=== PATIENT | male | born 1975 | race Caucasian/White ===

== ENCOUNTER 2016-09-26 19:03 | Emergency (ER) | payer MEDICAID ==
[2016-09-26] MEDS ORDERED: TETRACAINE HCL 0.5% OPH SOLN 2 ML OS ONE (19:25)
--- NOTE | 2016-09-26 19:25 | ER Document Report ---
ED Medical Screen (RME) - General Stated Complaint: FOREIGN OBJECT IN LEFT EYE Notes: 41 yo male c/o left eye injury. possible foreign body in left eye, ? piece of metal. + contact wearer. no vision change + left conjunctival injection TRAVEL OUTSIDE OF THE [place] IN LAST 30 DAYS: No - Related Data Allergies/Adverse Reactions: No Known Allergies Allergy (Verified 04/04/16 12:45) Past Medical History - Past Medical History Cardiac Medical History: Reports: Hx Hypertension - no meds/poss related to nervousness, Hx Heart Murmur - no sbe Denies: Hx Coronary Artery Disease, Hx Heart Attack Pulmonary Medical History: Denies: Hx Asthma, Hx Bronchitis, Hx COPD, Hx Pneumonia Neurological Medical History: Denies: Hx Cerebrovascular Accident, Hx Seizures GI Medical History: Musculoskeltal Medical History: Reports Hx Arthritis - neuritis LEFT arm/NO IV in LEFT arm , Reports Hx Muscle Weakness - L. arm Psychiatric Medical History: Denies: Hx Depression Infectious Medical History: Past Surgical History: Denies: Hx Pacemaker - Immunizations Hx Diphtheria, Pertussis, Tetanus Vaccination: Yes - 2004
[2016-09-26] MEDS ORDERED: ACETAMINOPHEN WITH CODEINE #3 TABLET PO ONE (22:49)
[2016-09-26] MEDS ORDERED: POLYMYXIN B SULFATE/TMP OPH SOLN 10 ML OS ONE (22:49)
--- NOTE | 2016-09-26 23:01 | ER Document Report ---
ED Eye Complaint - General Chief Complaint: Foreign Body in Eye Stated Complaint: FOREIGN OBJECT IN LEFT EYE Time seen by provider: 22:40 Notes: Patient is a 41-year-old male that comes emergency department for chief complaint of possible foreign body in the left eye, patient states that he was using a small tool to drill dinesh out of the floor this morning when he felt something tiny go into his eye, he states he has had discomfort and watering of his eyes since that time this morning. He was wearing contacts when it happened , he removed these. He is currently wearing glasses. He denies blurred vision, visual loss, discolored discharge. Patient states he was examining his eye and under his eyelids and he saw what looked like a tiny piece of metal underneath his upper eyelid. He states he could not get this out by flushing. TRAVEL OUTSIDE OF THE [place] IN LAST 30 DAYS: No - Related Data Allergies/Adverse Reactions: No Known Allergies Allergy (Verified 09/26/16 19:27) Past Medical History - General Information source: Patient - Social History Smoking Status: Former Smoker Chew tobacco use (# tins/day): No Frequency of alcohol use: Occasional Drug Abuse: None Lives with: Family Family History: Reviewed & Not Pertinent Patient has suicidal ideation: No Patient has homicidal ideation: No - Past Medical History Cardiac Medical History: Reports: Hx Hypertension - no meds/poss related to nervousness, Hx Heart Murmur - no sbe Denies: Hx Coronary Artery Disease, Hx Heart Attack Pulmonary Medical History: Denies: Hx Asthma, Hx Bronchitis, Hx COPD, Hx Pneumonia Neurological Medical History: Denies: Hx Cerebrovascular Accident, Hx Seizures Renal/ Medical History: Denies: Hx Peritoneal Dialysis GI Medical History: Musculoskeltal Medical History: Reports Hx Arthritis - neuritis LEFT arm/NO IV in LEFT arm , Reports Hx Muscle Weakness - L. arm Psychiatric Medical History: Denies: Hx Depression Infectious Medical History: Surgical Hx: Negative Past Surgical History: Denies: Hx Pacemaker - Immunizations Hx Diphtheria, Pertussis, Tetanus Vaccination: Yes - 2004 Review of Systems - Review of Systems Constitutional: No symptoms reported EENT: See HPI Cardiovascular: No symptoms reported Respiratory: No symptoms reported Gastrointestinal: No symptoms reported Genitourinary: No symptoms reported Male Genitourinary: No symptoms reported Musculoskeletal: No symptoms reported Skin: No symptoms reported Hematologic/Lymphatic: No symptoms reported Neurological/Psychological: No symptoms reported Physical Exam - Vital signs Vitals: Temp Pulse Resp BP Pulse Ox 98.3 F 106 H 16 155/112 H 98 09/26/16 19:23 09/26/16 19:23 09/26/16 19:23 09/26/16 19:23 09/26/16 19:23 Interpretation: Normal - General General appearance: Appears well, Alert - HEENT Head: Normocephalic, Atraumatic Eyes: Normal Conjunctiva: Other - There is some irritation and mildly injected conjunctiva on the left side, with semination of the eyelids there was noted to be a small dark hard substance underneath the upper left eyelid. No embedded foreign bodies, no obvious signs of injury. Cornea: Normal. No: Corneal abrasion, Corneal ulcer, Dendrite, Embedded foreign body, Flourescein stain uptake, Superficial foreign body Extraocular movements intact: Yes Eyelashes: Normal Pupils: PERRL Anterior chamber: Normal. No: Hyphema Nerve palsy: No Visual mccormick normal: Yes Ears: Normal External canal: Normal Tympanic membrane: Normal Mucous membranes: Normal Pharynx: Normal - Respiratory Respiratory status: No respiratory distress Chest status: Nontender Breath sounds: Normal Chest palpation: Normal - Cardiovascular Rhythm: Regular. No: Tachycardia Heart sounds: Normal auscultation, S1 appreciated, S2 appreciated Murmur: No - Abdominal Inspection: Normal Distension: No distension Bowel sounds: Normal Tenderness: Nontender Organomegaly: No organomegaly - Back Back: Normal, Nontender - Extremities General upper extremity: Normal inspection, Nontender, Normal color, Normal ROM , Normal temperature General lower extremity: Normal inspection, Nontender, Normal color, Normal ROM , Normal temperature, Normal weight bearing. No: Dallin's sign - Neurological Neuro grossly intact: Yes Cognition: Normal Orientation: AAOx4 [place] Coma Scale Eye Opening: Spontaneous Ari Coma Scale Verbal: Oriented [place] Coma Scale Motor: Obeys Commands Ari Coma Scale Total: 15 Speech: Normal Motor strength normal: LUE, RUE, LLE, RLE Sensory: Normal - Psychological Associated symptoms: Normal affect, Normal mood - Skin Skin Temperature: Warm Skin Moisture: Dry Skin Color: Normal Course - Re-evaluation Re-evalutation: Small foreign body underneath the left upper eyelid, removed easily with a Q- tip. Close examination with fluoresceined dye reveals no embedded foreign bodies, negative Leonor sign, no corneal abrasions, there is a tiny abrasion over the sclera noted, patient was given antibiotic eyedrops, referred to ophthalmology, discussed return precautions in detail. Patient states satisfaction and agreement. - Vital Signs Vital signs: Temp Pulse Resp BP Pulse Ox 98.3 F 106 H 16 155/112 H 98 09/26/16 19:23 09/26/16 19:23 09/26/16 19:23 09/26/16 19:23 09/26/16 19:23 Procedures - Eye Procedure left eye Foreign body removal: Left Alcaine Drops Administered: Yes - 2 drops of tetracaine Acular drops administered: Left Fluorescein applied: Left Antibiotic Oinment/Drps Admin: Left eye Slit lamp used: Yes Notes: After tetracaine, Q-tip used 2 remove foreign body underneath the left eyelid, eyelid sustained the floor seen, examined with wooden slit-lamp, small abrasion to the sclera noted but no corneal abnormalities or embedded foreign bodies noted. Eyes picture: 1 - Location of small foreign body underneath the upper eyelid of the left eye Discharge - Discharge Clinical Impression: Foreign body, eye Qualifiers: Encounter type: initial encounter Laterality: left Qualified Code(s): T15.92XA - Foreign body on external eye, part unspecified, left eye, initial encounter Condition: Stable Disposition: HOME, SELF-CARE Additional Instructions: No foreign bodies remaining in the eye on reexamination. The small foreign body under the eyelid has been removed. Questionable small scratch over the white part of the eye, use the antibiotic drops as directed, follow-up with ophthalmology referral for recheck. Return to the emergency department for any concerning worsening symptoms including eye pain or swelling, visual loss, etc. Prescriptions: Polymyxin B Sulfate/Tmp [Polytrim Oph Soln 10 ml] 1 dose OP ASDIR PRN #1 bottle PRN Reason: Forms: Elevated Blood Pressure Referrals: ANU TAYLOR MD [ACTIVE STAFF] - 09/28/16
[2016-09-26] MEDS ORDERED: POLYMYXIN B SULFATE/TMP OPH SOLN 10 ML ONE (23:29)
[2016-09-26 23:53] VITALS: BP 146/94
== END 2016-09-26 23:42 | disposition home or self-care (01) ==
LOC: ER 19:03
DX: T15.92XA Foreign body on external eye, part unspecified, left eye, initial encounter (principal); X58.XXXA Exposure to other specified factors, initial encounter; Y93.89 Activity, other specified; Z87.891 Personal history of nicotine dependence; I10 Essential (primary) hypertension
CPT/HCPCS: 99283; J3490

== ENCOUNTER 2017-07-10 12:43 | Emergency (ER) | payer SELFPAY ==
--- NOTE | 2017-07-10 13:11 | EKG REPORT ---
SEVERITY:- BORDERLINE ECG - SINUS TACHYCARDIA BORDERLINE PROLONGED QT INTERVAL : Confirmed by: Vikas Luna MD 10-Jul-2017 13:10:42
--- NOTE | 2017-07-10 13:22 | ER Document Report ---
ED Medical Screen (RME) - General Chief Complaint: Irregular Pulse Stated Complaint: IRREGULAR HEART BEAT Time Seen by Provider: 07/10/17 13:21 Notes: Patient states that he has been diagnosed with PVCs. He states he is having a lot of PVCs today and I prevent him from working. He states that he is also under a lot of stress and has bad anxiety. He states he would like to be put on a monitor, he wants an ultrasound done to look at his heart [place], and he would like blood work done. TRAVEL OUTSIDE OF THE [place] IN LAST 30 DAYS: No - Related Data Allergies/Adverse Reactions: No Known Allergies Allergy (Verified 07/10/17 12:44) Home Medications: Current Home Medications Lisinopril [Prinivil 5 mg Tablet] 5 mg PO DAILY 07/10/17 [History] Past Medical History - Social History Chew tobacco use (# tins/day): No Frequency of alcohol use: Occasional Drug Abuse: Marijuana - Past Medical History Cardiac Medical History: Reports: Hx Hypertension - no meds/poss related to nervousness, Hx Heart Murmur - no sbe Denies: Hx Coronary Artery Disease, Hx Heart Attack Pulmonary Medical History: Denies: Hx Asthma, Hx Bronchitis, Hx COPD, Hx Pneumonia Neurological Medical History: Denies: Hx Cerebrovascular Accident, Hx Seizures Renal/ Medical History: Denies: Hx Peritoneal Dialysis GI Medical History: Musculoskeltal Medical History: Reports Hx Arthritis - neuritis LEFT arm/NO IV in LEFT arm , Reports Hx Muscle Weakness - L. arm Psychiatric Medical History: Denies: Hx Depression Infectious Medical History: Past Surgical History: Denies: Hx Pacemaker - Immunizations Hx Diphtheria, Pertussis, Tetanus Vaccination: Yes - 2004 Physical Exam - Vital signs Vitals: Temp Pulse Resp BP Pulse Ox 98.2 F 106 H 20 158/102 H 100 07/10/17 13:03 07/10/17 13:03 07/10/17 13:03 07/10/17 13:03 07/10/17 13:03 Course - Vital Signs Vital signs: Temp Pulse Resp BP Pulse Ox 98.2 F 106 H 20 158/102 H 100 07/10/17 13:03 07/10/17 13:03 07/10/17 13:03 07/10/17 13:03 07/10/17 13:03
[2017-07-10 13:53] LABS: ABSOLUTE EOSINOPHILS # (AUTO) 0.1 10^3/uL (0.0-0.6); ABSOLUTE LYMPHOCYTES (AUTO) 1.7 10^3/uL (0.5-4.7); ABSOLUTE MONOCYTES (AUTO) 0.4 10^3/uL (0.1-1.4); ABSOLUTE NEUT (AUTO) 3.4 10^3/uL (1.7-8.2); BASOPHILS % (AUTO) 0.2 % (0-2); EOSINOPHILS % (AUTO) 2.5 % (0-6); HEMATOCRIT 43.4 % (37.9-51.0); HEMOGLOBIN 15.4 g/dL (13.5-17.0); HGB HCT DIFFERENCE 2.8; LYMPHOCYTES % (AUTO) 30.5 % (13-45); MEAN CORPUSCULAR HEMOGLOBIN 30.2 pg (27.0-33.4); MEAN CORPUSCULAR HGB CONC 35.4 g/dL (32.0-36.0); MEAN CORPUSCULAR VOLUME 85 fl (80-97); RED BLOOD COUNT 5.09 10^6/uL (4.35-5.55); RED CELL DISTRIBUTION WIDTH 13.1 % (11.5-14.0); SEGMENTED NEUTROPHILS % (AUTO) 59.8 % (42-78); WHITE BLOOD COUNT 5.7 10^3/uL (4.0-10.5)
[2017-07-10 14:03] LABS: ALANINE AMINOTRANSFERASE 60 U/L (21-72); ALBUMIN 4.8 g/dL (3.5-5.0); ALKALINE PHOSPHATASE 65 U/L (38-126); ANION GAP 10 (5-19); ASPARTATE AMINO TRANSFERASE 35 U/L (17-59); BILIRUBIN,DIRECT 0.2 mg/dL (0.0-0.4); BILIRUBIN,TOTAL 1.2 mg/dL (0.2-1.3); BLOOD UREA NITROGEN 18 mg/dL (7-20); CALCIUM 9.9 mg/dL (8.4-10.2); CARBON DIOXIDE 33 mmol/L (22-30); CHLORIDE 98 mmol/L (98-107); CREATININE RESULT 0.95 mg/dL (0.52-1.25); GLUCOSE 103 mg/dL (75-110); MAGNESIUM 1.7 mg/dL (1.6-2.3); POTASSIUM 4.1 mmol/L (3.6-5.0); TOTAL PROTEIN 7.8 g/dL (6.3-8.2)
--- NOTE | 2017-07-10 15:08 | ER Document Report ---
ED General - General Chief Complaint: Irregular Pulse Stated Complaint: IRREGULAR HEART BEAT Time Seen by Provider: 07/10/17 13:21 Mode of Arrival: Ambulatory Information source: Patient Notes: 42-year-old male history of anxiety stress and PVCs presents with complaints of PVCs. Patient notes that he knows he has PVCs that he has no chest pain or shortness of breath no other deficits but that he gets scared when he feels these sensations. Patient notes the sensation is worse in when he is stressed. He knows when he relaxes the symptoms all go away. He denies any other concerns TRAVEL OUTSIDE OF THE [place] IN LAST 30 DAYS: No - HPI Onset: Other - Chronic for years Onset/Duration: Waxing and waning Quality of pain: No pain Severity: Mild Pain Level: Denies Associated symptoms: Other Exacerbated by: Other - Stress Relieved by: Other - Relaxation Similar symptoms previously: No Recently seen / treated by doctor: No - Related Data Allergies/Adverse Reactions: No Known Allergies Allergy (Verified 07/10/17 12:44) Home Medications: Current Home Medications Lisinopril [Prinivil 5 mg Tablet] 5 mg PO DAILY 07/10/17 [History] Past Medical History - Social History Smoking Status: Former Smoker Cigarette use (# per day): No Chew tobacco use (# tins/day): No Smoking Education Provided: No Frequency of alcohol use: Occasional Drug Abuse: Marijuana Family History: Reviewed & Not Pertinent Patient has suicidal ideation: Yes - in counseling for these thoughts, under control and management Patient has homicidal ideation: No - Past Medical History Cardiac Medical History: Reports: Hx Hypertension - no meds/poss related to nervousness, Hx Heart Murmur - no sbe Denies: Hx Coronary Artery Disease, Hx Heart Attack Pulmonary Medical History: Denies: Hx Asthma, Hx Bronchitis, Hx COPD, Hx Pneumonia Neurological Medical History: Denies: Hx Cerebrovascular Accident, Hx Seizures Renal/ Medical History: Denies: Hx Peritoneal Dialysis GI Medical History: Musculoskeltal Medical History: Reports Hx Arthritis - neuritis LEFT arm/NO IV in LEFT arm , Reports Hx Muscle Weakness - L. arm Psychiatric Medical History: Denies: Hx Depression Infectious Medical History: Past Surgical History: Denies: Hx Pacemaker - Immunizations Hx Diphtheria, Pertussis, Tetanus Vaccination: Yes - 2004 Review of Systems - Review of Systems Notes: REVIEW OF SYSTEMS: CONSTITUTIONAL : Denies fever, chills, or sweats. Denies recent illness. EENT: Denies eye, ear, throat, or mouth pain or symptoms. Denies nasal or sinus congestion or discharge. Denies throat, tongue, or mouth swelling or difficulty swallowing. CARDIOVASCULAR: Admits to palpitations RESPIRATORY: Denies cough, cold, or chest congestion. Denies shortness of breath, difficulty breathing, or wheezing. GASTROINTESTINAL: Denies abdominal pain or distention. Denies nausea, vomiting , or diarrhea. Denies blood in vomitus, stools, or per rectum. Denies black, tarry stools. Denies constipation. GENITOURINARY: Denies difficulty urinating, painful urination, burning, frequency, blood in urine, or discharge. MUSCULOSKELETAL: Denies back or neck pain or stiffness. Denies joint pain or swelling. SKIN: Denies rash, lesions or sores. HEMATOLOGIC : Denies easy bruising or bleeding. LYMPHATIC: Denies swollen, enlarged glands. NEUROLOGICAL: Denies confusion or altered mental status. Denies passing out or loss of consciousness. Denies dizziness or lightheadedness. Denies headache. Denies weakness or paralysis or loss of use of either side. Denies problems with gait or speech. Denies sensory loss, numbness, or tingling. Denies seizures. PSYCHIATRIC: Admits to stress ALL OTHER SYSTEMS REVIEWED AND NEGATIVE. Dictation was performed using [employer] voice recognition software PHYSICAL EXAMINATION: GENERAL: Well-appearing, well-nourished and in no acute distress. HEAD: Atraumatic, normocephalic. EYES: Pupils equal round and reactive to light, extraocular movements intact, sclera anicteric, conjunctiva are normal. ENT: Nares patent, oropharynx clear without exudates. Moist mucous membranes. NECK: Normal range of motion, supple without lymphadenopathy LUNGS: Breath sounds clear to auscultation bilaterally and equal. No wheezes rales or rhonchi. HEART: Regular rate and rhythm without murmurs ABDOMEN: Soft, nontender, nondistended abdomen. No guarding, no rebound. No masses appreciated. Musculoskeletal: Normal range of motion, no pitting or edema. No cyanosis. NEUROLOGICAL: Cranial nerves grossly intact. Baseline speech impediment PSYCH: Anxious SKIN: Warm, Dry, normal turgor, no rashes or lesions noted. Physical Exam - Vital signs Vitals: Temp Pulse Resp BP Pulse Ox 98.2 F 106 H 20 158/102 H 100 07/10/17 13:03 07/10/17 13:03 07/10/17 13:03 07/10/17 13:03 07/10/17 13:03 Course - Re-evaluation Re-evalutation: 07/10/17 16:53 Patient's only concern is palpitations, he was watched on monitor he did have one PVC, I did print out the rhythm strip for him and showed it to him. Otherwise he looks well is in no distress has been having these symptoms for years and there is no life-threatening issues. Today patient became concerned because his dog awoke him and when he awoke he had palpitations which have since improved After performing a Medical Screening Examination, I estimate there is LOW risk for RUPTURED ESOPHAGUS, PNEUMOTHORAX, PULMONARY EMBOLISM, ACUTE CORONARY SYNDROME, OR THORACIC AORTIC DISSECTION, thus I consider the discharge disposition reasonable. I have reevaluated this patient multiple times and no significant life threatening changes are noted. The patient and I have discussed the diagnosis and risks, and we agree with discharging home with close follow-up. We also discussed returning to the Emergency Department immediately if new or worsening symptoms occur. We have discussed the symptoms which are most concerning (e.g., bloody sputum, worsening pain or shortness of breath) that necessitate immediate return. - Vital Signs Vital signs: Temp Pulse Resp BP Pulse Ox 98.2 F 106 H 15 147/105 H 99 07/10/17 16:04 07/10/17 13:03 07/10/17 15:23 07/10/17 15:23 07/10/17 15:23 - Laboratory Result Diagrams: 07/10/17 13:25 07/10/17 13:25 Laboratory results interpreted by me: 07/10/17 13:25 Carbon Dioxide 33 H - Diagnostic Test Radiology reviewed: Image reviewed, Reports reviewed - EKG Interpretation by Co EKG shows normal: Sinus rhythm, [place], Intervals, QRS Complexes Discharge - Discharge Clinical Impression: Heart palpitations Condition: Stable Disposition: HOME, SELF-CARE Instructions: Palpitations (Irregular or Rapid Heartrate) ([facility]) Prescriptions: Hydroxyzine Pamoate [Vistaril 50 mg Capsule] 50 mg PO Q8 #30 capsule Referrals: SOPHIE BEAL PA-C [Primary Care Provider] - Follow up tomorrow
[2017-07-10 15:34] VITALS: BP 147/105
== END 2017-07-10 15:34 | disposition home or self-care (01) ==
LOC: ER 12:43
DX: I49.3 Ventricular premature depolarization (principal); F43.9 Reaction to severe stress, unspecified; I10 Essential (primary) hypertension; Z87.891 Personal history of nicotine dependence
CPT/HCPCS: 36415; 80053; 83735; 84443; 85025; 93005; 93010; 99285

== ENCOUNTER 2017-07-21 14:33 | Emergency (ER) | payer SELFPAY ==
--- NOTE | 2017-07-21 14:57 | ER Document Report ---
ED Medical Screen (RME) - General TRAVEL OUTSIDE OF THE [place] IN LAST 30 DAYS: No <SARAH LILLY - Last Filed: 07/21/17 14:56> <ESE GRIFFITHS - Last Filed: 07/21/17 16:53> - General Chief Complaint: Psych Problem Stated Complaint: PSYCH EVAL Time Seen by Provider: 07/21/17 14:52 Notes: 42-year-old male patient with anxiety disorder seen at [facility] a few days ago. He was arrested last night on a DUI. 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 He is concerned about the future. He was considering overdosing on his medications. His girlfriend took the medications away from him. He called mobile crisis and they recommended coming to the emergency room for evaluation and treatment. I have greeted and performed a rapid initial assessment of this patient. A comprehensive ED assessment and evaluation of the patient, analysis of test results and completion of the medical decision making process will be conducted by additional ED providers. (SARAH LILLY) - Related Data Allergies/Adverse Reactions: No Known Allergies Allergy (Verified 07/21/17 14:36) Past Medical History - Past Medical History Cardiac Medical History: Reports: Hx Hypertension - no meds/poss related to nervousness, Hx Heart Murmur - no sbe Denies: Hx Coronary Artery Disease, Hx Heart Attack Pulmonary Medical History: Denies: Hx Asthma, Hx Bronchitis, Hx COPD, Hx Pneumonia Neurological Medical History: Denies: Hx Cerebrovascular Accident, Hx Seizures Renal/ Medical History: Denies: Hx Peritoneal Dialysis GI Medical History: Musculoskeltal Medical History: Reports Hx Arthritis - neuritis LEFT arm/NO IV in LEFT arm , Reports Hx Muscle Weakness - L. arm Psychiatric Medical History: Denies: Hx Depression Infectious Medical History: Past Surgical History: Denies: Hx Pacemaker - Immunizations Hx Diphtheria, Pertussis, Tetanus Vaccination: Yes - 2004 <SARAH LILLY - Last Filed: 07/21/17 14:56> - Vital signs Vitals: Temp Pulse Resp BP Pulse Ox 98.9 F 112 H 24 H 172/97 H 99 07/21/17 14:46 07/21/17 14:46 07/21/17 14:46 07/21/17 14:46 07/21/17 14:46 Course - Laboratory Result Diagrams: 07/21/17 15:06 07/21/17 15:06 <ESE GRIFFITHS - Last Filed: 07/21/17 16:53> - Vital Signs Vital signs: Temp Pulse Resp BP Pulse Ox 98.9 F 112 H 24 H 172/97 H 99 07/21/17 14:46 07/21/17 14:46 07/21/17 14:46 07/21/17 14:46 07/21/17 14:46 - Laboratory Laboratory results interpreted by me: 07/21/17 07/21/17 15:06 15:06 Calcium 11.1 H Total Protein 8.5 H Albumin 5.3 H Urine Urobilinogen 2.0 H Ur Leukocyte Esterase TRACE H Salicylates < 1.0 L Acetaminophen < 10 L Doctor's Discharge <SARAH LILLY - Last Filed: 07/21/17 14:56> <ESE GRIFFITHS - Last Filed: 07/21/17 16:53> - Discharge Clinical Impression: Suicidal ideation, Anxiety Depression Qualifiers: Depression Type: unspecified Qualified Code(s): F32.9 - Major depressive disorder, single episode, unspecified Condition: Stable Disposition: HOME, SELF-CARE Additional Instructions: DEPRESSION: Your evaluation reveals that you have mental depression. While symptoms may be vague, they often include disturbance of sleep, fatigue, loss of appetite , and general loss of interest in life. While depression may be a side effect of drugs, or a reaction to a major change in your life, many cases have no known cause. If depression is acute, and related to a major loss in your life, you can expect it to clear completely with time. If you have been depressed a long time , are prone to repeated bouts of depression or low mood, or have been thinking of suicide, get help. Depression can be treated with anti-depressant medication and counselling. Long-term depression will often take a few weeks to clear, even with appropriate medication. Follow-up care is important. SUICIDAL IDEATION: Suicidal ideation is a common medical term for thoughts about suicide, which may be as detailed as a formulated plan, without the suicidal act itself. Although most people who undergo suicidal ideation do not commit suicide, some go on to make suicide attempts. The range of suicidal ideation varies greatly from fleeting to detailed planning, role playing, and unsuccessful attempts. While thoughts about suicide are common, most people do not carry out serious actions to commit suicide. Based upon your evaluation and discussion with you, we do not believe you are currently at risk to act upon your thoughts of suicide. You have agreed to return to the Emergency Department, at any time , if you feel inclined to act upon your suicidal thoughts. CHRONIC ALCOHOLISM and ALCOHOL ABUSE: Your evaluation reveals evidence of chronic alcoholism, an addiction to alcohol. The tendency to alcoholism may be inherited. Chronic use of alcohol weakens muscles, causes fatty deposits in the liver , damages the stomach, makes you more prone to infections, and can cause defects in unborn children. In the long run, brain atrophy and cirrhosis of the liver result. You are also at greater risk for certain types of cancer, such as cancer of the mouth, throat, stomach, and liver. Counselling services are available to help you. In-hospital treatment programs often help. Support groups such as Alcoholics Anonymous can be very useful in beating this addiction. Your physician can make a referral for you. As alcoholics often are prone to other addictions, you should discuss your use of any other medications with the doctor. Anxiety The physician feels that some of your health problems are being caused by anxiety. Anxiety affects your health in many ways. Anxiety alone can cause palpitations, sweats, chest pains, abdominal pains, shortness of breath, and headaches. It contributes to ulcer disease, high blood pressure, irritable bowel syndrome, and has been shown to cause flare-ups of many other diseases. Anxiety is not a simple disorder to treat. If the anxiety is due to recent life stresses, you may simply need time to "work through" the changes. If the anxiety is due to an underlying unhappiness with yourself or due to psychiatric disturbance, professional help will be needed. Your physician can refer you for further help if needed. Anti-anxiety medication is occasionally given if the stress is acute or if you are having trouble sleeping. Chronic or frequent use of these medications is not a good idea because the body becomes reliant on it, preventing you from dealing with life's normal stresses. FOLLOW-UP CARE: You have been recommended to follow up with your scheduled appointments with [facility]. You have been provided a resource sheet with other outpatient providers and mobile crisis to utilize as needed. If you experience worsening or a significant change in your symptoms, notify the physician immediately or return to the Emergency Department at any time for re-evaluation. Referrals: [facility] [Provider Group] - 07/25/17 [facility] Crisis Team [Outside] - Follow up as needed
[2017-07-21 15:23] LABS: ABSOLUTE EOSINOPHILS # (AUTO) 0.1 10^3/uL (0.0-0.6); ABSOLUTE LYMPHOCYTES (AUTO) 2.2 10^3/uL (0.5-4.7); ABSOLUTE MONOCYTES (AUTO) 0.6 10^3/uL (0.1-1.4); ABSOLUTE NEUT (AUTO) 6.9 10^3/uL (1.7-8.2); BASOPHILS % (AUTO) 0.4 % (0-2); EOSINOPHILS % (AUTO) 0.8 % (0-6); HEMATOCRIT 46.7 % (37.9-51.0); HEMOGLOBIN 16.2 g/dL (13.5-17.0); LYMPHOCYTES % (AUTO) 22.2 % (13-45); MEAN CORPUSCULAR HEMOGLOBIN 29.6 pg (27.0-33.4); MEAN CORPUSCULAR HGB CONC 34.6 g/dL (32.0-36.0); MEAN CORPUSCULAR VOLUME 86 fl (80-97); MONOCYTES % (AUTO) 6.2 % (3-13); PLATELET COUNT 225 10^3/uL (150-450); RED BLOOD COUNT 5.47 10^6/uL (4.35-5.55); RED CELL DISTRIBUTION WIDTH 13.9 % (11.5-14.0); SEGMENTED NEUTROPHILS % (AUTO) 70.4 % (42-78); TOTAL CELLS COUNTED % (AUTO) 100 %; WHITE BLOOD COUNT 9.8 10^3/uL (4.0-10.5)
--- NOTE | 2017-07-21 15:27 | ER Document Report ---
ED Psych Disorder / Suicide - General Chief Complaint: Psych Problem Stated Complaint: PSYCH EVAL Time Seen by Provider: 07/21/17 14:52 Mode of Arrival: Ambulatory Information source: Patient TRAVEL OUTSIDE OF THE [place] IN LAST 30 DAYS: No - HPI Patient complains to provider of: Suicidal ideation Onset: Yesterday Onset was: Sudden Quality of pain: No pain Suicide Risk Factors: Frightened friends/family, Male, Organized plan, Other mental health dx. Situational problems related to: Legal problems Suicide Attempt Method: Overdose Normal mood: No - ANXIOUS, BORDERLINE TEARFUL Associated symptoms: Agitated, Psychomotor agitation, Restlessness Similar symptoms previously: Yes Recently seen / treated by doctor: No - Related Data Allergies/Adverse Reactions: No Known Allergies Allergy (Verified 07/21/17 14:36) Past Medical History - General Information source: Patient - Social History Smoking Status: Never Smoker Cigarette use (# per day): No Chew tobacco use (# tins/day): No Frequency of alcohol use: Occasional Drug Abuse: None, Marijuana Lives with: Spouse/Significant other Family History: Reviewed & Not Pertinent Patient has suicidal ideation: Yes Patient has homicidal ideation: No - Past Medical History Cardiac Medical History: Reports: Hx Hypertension - no meds/poss related to nervousness, Hx Heart Murmur - no sbe, Other - PVC's Denies: Hx Coronary Artery Disease, Hx Heart Attack Pulmonary Medical History: Denies: Hx Asthma, Hx Bronchitis, Hx COPD, Hx Pneumonia Neurological Medical History: Denies: Hx Cerebrovascular Accident, Hx Seizures Endocrine Medical History: Reports: None Renal/ Medical History: Reports: None. Denies: Hx Peritoneal Dialysis Malignancy Medical History: Reports None GI Medical History: Reports: None Musculoskeltal Medical History: Reports Hx Arthritis - neuritis LEFT arm/NO IV in LEFT arm , Reports Hx Muscle Weakness - L. arm Psychiatric Medical History: Reports: Hx Depression - SELF-DIAGNOSIS Infectious Medical History: Past Surgical History: Reports: Hx Cholecystectomy, Other - CERVICAL NODE Bx. Denies: Hx Pacemaker - Immunizations Hx Diphtheria, Pertussis, Tetanus Vaccination: Yes - 2004 Review of Systems - Review of Systems Constitutional: No symptoms reported EENT: No symptoms reported Cardiovascular: Palpitations Respiratory: No symptoms reported Gastrointestinal: No symptoms reported Genitourinary: No symptoms reported Musculoskeletal: No symptoms reported Skin: No symptoms reported Neurological/Psychological: See HPI Physical Exam - Vital signs Vitals: Temp Pulse Resp BP Pulse Ox 98.9 F 112 H 24 H 172/97 H 99 07/21/17 14:46 07/21/17 14:46 07/21/17 14:46 07/21/17 14:46 07/21/17 14:46 Interpretation: Hypertensive, Tachycardic, Tachypneic. No: Febrile - General General appearance: Appears well, Alert In distress: None - HEENT Head: Normocephalic Eyes: Normal Conjunctiva: Normal Ears: Normal Nasal: Normal Mouth/Lips: Normal Mucous membranes: Normal Pharynx: Normal Neck: Normal - Respiratory Respiratory status: No respiratory distress Breath sounds: Normal - Cardiovascular Rhythm: Regular Heart sounds: Normal auscultation Murmur: No - Abdominal Inspection: Normal Bowel sounds: Normal - Back Back: Normal - Extremities General upper extremity: Normal inspection General lower extremity: Normal inspection - Neurological Neuro grossly intact: Yes Cognition: Normal Orientation: AAOx4 - Psychological Associated symptoms: Normal affect, Normal mood - Skin Skin Temperature: Warm Skin Moisture: Dry Skin Color: Normal Skin Turgor: Elastic Course - Vital Signs Vital signs: Temp Pulse Resp BP Pulse Ox 98.9 F 112 H 24 H 172/97 H 99 07/21/17 14:46 07/21/17 14:46 07/21/17 14:46 07/21/17 14:46 07/21/17 14:46 - Laboratory Result Diagrams: 07/21/17 15:06 07/21/17 15:06 Laboratory results interpreted by me: 07/21/17 07/21/17 15:06 15:06 Calcium 11.1 H Total Protein 8.5 H Albumin 5.3 H Urine Urobilinogen 2.0 H Ur Leukocyte Esterase TRACE H Salicylates < 1.0 L Acetaminophen < 10 L Discharge - Discharge Clinical Impression: Suicidal ideation, Anxiety, Bipolar and related disorder, Alcohol use disorder Depression Qualifiers: Depression Type: unspecified Qualified Code(s): F32.9 - Major depressive disorder, single episode, unspecified Condition: Stable Disposition: HOME, SELF-CARE Additional Instructions: DEPRESSION: Your evaluation reveals that you have mental depression. While symptoms may be vague, they often include disturbance of sleep, fatigue, loss of appetite , and general loss of interest in life. While depression may be a side effect of drugs, or a reaction to a major change in your life, many cases have no known cause. If depression is acute, and related to a major loss in your life, you can expect it to clear completely with time. If you have been depressed a long time , are prone to repeated bouts of depression or low mood, or have been thinking of suicide, get help. Depression can be treated with anti-depressant medication and counselling. Long-term depression will often take a few weeks to clear, even with appropriate medication. Follow-up care is important. SUICIDAL IDEATION: Suicidal ideation is a common medical term for thoughts about suicide, which may be as detailed as a formulated plan, without the suicidal act itself. Although most people who undergo suicidal ideation do not commit suicide, some go on to make suicide attempts. The range of suicidal ideation varies greatly from fleeting to detailed planning, role playing, and unsuccessful attempts. While thoughts about suicide are common, most people do not carry out serious actions to commit suicide. Based upon your evaluation and discussion with you, we do not believe you are currently at risk to act upon your thoughts of suicide. You have agreed to return to the Emergency Department, at any time , if you feel inclined to act upon your suicidal thoughts. CHRONIC ALCOHOLISM and ALCOHOL ABUSE: Your evaluation reveals evidence of chronic alcoholism, an addiction to alcohol. The tendency to alcoholism may be inherited. Chronic use of alcohol weakens muscles, causes fatty deposits in the liver , damages the stomach, makes you more prone to infections, and can cause defects in unborn children. In the long run, brain atrophy and cirrhosis of the liver result. You are also at greater risk for certain types of cancer, such as cancer of the mouth, throat, stomach, and liver. Counselling services are available to help you. In-hospital treatment programs often help. Support groups such as Alcoholics Anonymous can be very useful in beating this addiction. Your physician can make a referral for you. As alcoholics often are prone to other addictions, you should discuss your use of any other medications with the doctor. Anxiety The physician feels that some of your health problems are being caused by anxiety. Anxiety affects your health in many ways. Anxiety alone can cause palpitations, sweats, chest pains, abdominal pains, shortness of breath, and headaches. It contributes to ulcer disease, high blood pressure, irritable bowel syndrome, and has been shown to cause flare-ups of many other diseases. Anxiety is not a simple disorder to treat. If the anxiety is due to recent life stresses, you may simply need time to "work through" the changes. If the anxiety is due to an underlying unhappiness with yourself or due to psychiatric disturbance, professional help will be needed. Your physician can refer you for further help if needed. Anti-anxiety medication is occasionally given if the stress is acute or if you are having trouble sleeping. Chronic or frequent use of these medications is not a good idea because the body becomes reliant on it, preventing you from dealing with life's normal stresses. FOLLOW-UP CARE: You have been recommended to follow up with your scheduled appointments with [facility]. You have been provided a resource sheet with other outpatient providers and mobile crisis to utilize as needed. If you experience worsening or a significant change in your symptoms, notify the physician immediately or return to the Emergency Department at any time for re-evaluation. Prescriptions: Buspirone HCl [Buspar 5 mg Tablet] 1 tab PO BID #30 tab Divalproex Sodium [Depakote ER 500 mg Tab.sr] 500 mg PO Q12 #30 tab.sr.24h Referrals: [facility] [Provider Group] - 07/25/17 [facility] Crisis Team [Outside] - Follow up as needed
[2017-07-21 15:28] LABS: APPEARANCE,URINE CLEAR; BILIRUBIN,URINE NEGATIVE (NEGATIVE); COLOR,URINE YELLOW; GLUCOSE, URINE NEGATIVE (NEGATIVE); KETONES,URINE NEGATIVE (NEGATIVE); LEUKOCYTE ESTERASE,URINE TRACE (NEGATIVE); NITRITE,URINE NEGATIVE (NEGATIVE); PROTEIN,URINE NEGATIVE (NEGATIVE); URINE SPECIFIC GRAVITY 1.017
[2017-07-21 15:40] LABS: URINE AMPHETAMINES SCREEN NEGATIVE; URINE BARBITURATES SCREEN NEGATIVE; URINE BENZODIAZEPINES SCREEN NEGATIVE; URINE COCAINE SCREEN NEGATIVE; URINE MARIJUANA (THC) SCREEN UNCONFIRMED POSITIVE; URINE METHADONE SCREEN NEGATIVE; URINE PHENCYCLIDINE SCREEN NEGATIVE
[2017-07-21 15:41] LABS: ALANINE AMINOTRANSFERASE 53 U/L (21-72); ALBUMIN 5.3 g/dL (3.5-5.0); ALKALINE PHOSPHATASE 80 U/L (38-126); ANION GAP 14 (5-19); ASPARTATE AMINO TRANSFERASE 35 U/L (17-59); BILIRUBIN,DIRECT 0.3 mg/dL (0.0-0.4); BILIRUBIN,TOTAL 1.3 mg/dL (0.2-1.3); BLOOD UREA NITROGEN 11 mg/dL (7-20); CALCIUM 11.1 mg/dL (8.4-10.2); CARBON DIOXIDE 28 mmol/L (22-30); CHLORIDE 101 mmol/L (98-107); GLUCOSE 103 mg/dL (75-110); SODIUM 143.2 mmol/L (137-145); TOTAL PROTEIN 8.5 g/dL (6.3-8.2)
[2017-07-21 15:43] LABS: ACETAMINOPHEN < 10 ug/mL (10-30); ALCOHOL < 10 mg/dL (NONE DETECTED); SALICYLATE < 1.0 mg/dL (2.0-20.0)
[2017-07-21] MEDS ORDERED: BUSPIRONE HCL 10 MG TABLET PO ONE (16:09)
[2017-07-21] MEDS ORDERED: DIVALPROEX SODIUM 500 MG TAB.SR.24H PO ONE (16:10)
--- NOTE | 2017-07-21 16:49 | PSYCHOLOGICAL NOTE ---
Psych Note - Psych Note Psych Note: Reason for Consult: Anxiety/Suicidal Ideation Consents given: juan Johnson, at bedside Patient presented at the Emergency Department with anxiety and suicidal ideation. Patient stated he has had "issues for year." Patient reported he took psychology courses to diagnose himself. Patient stated he is diagnosed with anxiety and has felt more depressed in the last few months. He stated he feels overwhelmed and has gotten extremely angry lately. He stated he killed a opossum by beating it to in the last month. Patient stated this behavior scared him and he has never been violent with people or animals before and will "never do that again." Patient stated he was "just so angry." Patient endorsed racing thoughts. He reported he takes a "few hits from a joint" when he can't slow down the thoughts in his head. He reported he was pulled over last night after leaving the [employer] where he and his fiancee went to "blow off the week." Patient stated this is a normal Saturday night routine for them to "reset " after a long week. Patient reported he took a different way home and was pulled when he made a wide turn to avoid missing the correct turn. Patient reported he blew a .11 on the breathalyzer. Patient stated he "didn't understand " how he blew so high because he only had "$12 on him" and beers were $2 a piece. Patient stated he drank a six pack and felt like his blood alcohol content should have been much lower. Patient reported he was charged with a DUI and his father signed to get him out of [facility]. 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 Patient stated he called [facility] and they told him to come to the Emergency Department to be evaluated. Patient reported he "did a lot of drugs" in the mid-nineties, to include marijuana, PCP, LSD, heroin and mushrooms. Patient stated he hasn't;'t done any drugs except marijuana since then and he only started smoking marijuana again within the last year. Patient stated he drinks approximately two beers daily after work "to relax." Patient stated the alcohol relieves his anxiety. Patient stated he went to [facility] between 2105 and 2016 where he went through three counselors because they kept leaving the [employer] [facility]. Patient stated he has now gone through [facility] and he has an alcohol assessment scheduled for July 25, 2017 and a therapy appointment on August 21, 2017. Patient reported, "I'm taking this as a sign I need more help than I've been getting." Patient stated he knows he needs therapy to work on coping skills and management of daily life stressors. Patient reported he takes Lisinopril for high blood pressure and Vistaril 50 mg every 8 hours as needed for "PVC." Patient denies any psychiatric inpatient hospitalizations. Patient stated he has his parents in the area. Patient stated he has "history" with his father but he is still a support. Patient indicated his father has Parkinson's disease. Patient reported his mother is a infant teacher. Patient indicated his kandye is a support to him but he is concerned with not having a license because "everyone depends on me." Patient stated his juan has a disability hearing on the 8th and he can't drive her now. He also indicated his 15 year old child depends on him. Patient stated he felt like he was "letting everyone down." Patient was alert and oriented to person, place, time and circumstance. Mood was sad and tearful and affect was congruent. Patient was observed to be tearful and stuttering. Patient stated he had a stutter since he was [age] years old. Patient denied a precipitating event for the stutter. He reported his father also has a stutter. Patient stated he had a concussion when he was 10 from a sporting incident but denied any traumatic brain injury. Patient denied auditory and visual hallucinations. Patient stated he saw his ex -girlfriend after she but that was "years ago." and he believes part of his grieving process. Thought processes were linear, rational and organized. Conversational speech was somewhat pressured, but within normal range for tone. Intellectual abilities were estimated within average range. Insight, judgment and impulse control were good as evidenced by reaching out for help, being forthright with his fisunge and recognizing he needed therapy. No delusions or psychosis noted. 1. 296.80 (F31.9) Unspecified Bipolar and Related Disorder 2. 291.9 (F10.99) Unspecified Alcohol Use Disorder Impression/Plan: Patient is psychiatrically clear. He does not meet [place] G.S. criteria for IVC. Patient denied suicidal/homicidal ideation, intent or plan. Patient is interested in outpatient counseling and started medication treatment while in the Emergency Department and indicates he wants to continue the medication regiment as prescribed. He is referred to follow up with his scheduled appointments on 07.25.2017 and 08.21.2017 with [facility] for ongoing care and management of his mental health and substance use needs. Dr. Plummer was consulted in the care and management of this patient. ED physician in agreement with recommendation and disposition.
[2017-07-21 18:07] VITALS: BP 148/99
== END 2017-07-21 17:30 | disposition home or self-care (01) ==
LOC: ER 14:33
DX: F32.9 Major depressive disorder, single episode, unspecified (principal); F41.9 Anxiety disorder, unspecified; F10.10 Alcohol abuse, uncomplicated
CPT/HCPCS: 36415; 80053; 80307; 81001; 84443; 85025; 99285

== ENCOUNTER → 2019-06-29 | Outpatient (CLI) | payer MEDICAID ==
--- NOTE | 2019-06-29 12:34 | RADIOLOGY REPORT (SQ) ---
EXAM DESCRIPTION: SHOULDER RIGHT 2 OR MORE VIEWS COMPLETED DATE/TIME: 06/29/2019 12:05 pm REASON FOR STUDY: PAIN IN RIGHT SHOULDER M25.511 PAIN IN RIGHT SHOULDER COMPARISON: None. NUMBER OF VIEWS: Three views. TECHNIQUE: Internal rotation, external rotation, and Y view images acquired of the right shoulder. LIMITATIONS: None. FINDINGS: MINERALIZATION: Normal. BONES: No acute fracture. No worrisome bone lesions. JOINTS: No dislocation. VISUALIZED LUNGS AND RIBS: No pneumothorax. No rib fracture. SOFT TISSUES: No radiopaque foreign body. OTHER: No other significant finding. IMPRESSION: NEGATIVE STUDY OF THE RIGHT SHOULDER. NO RADIOGRAPHIC EVIDENCE OF ACUTE INJURY. TECHNICAL DOCUMENTATION: JOB ID: [id number] [employer]- All Rights Reserved Reading location - IP/workstation name: [email or web address]
== END ==
LOC: OD 11:50
PROVIDERS: ATTEND Nurse Practitioner Acute Care
DX: M25.511 Pain in right shoulder (principal)